=== PATIENT | female | born 1985 | race Caucasian/White ===

== ENCOUNTER 2018-07-21 20:16 | Emergency (ER) | payer BC | END 2018-07-21 21:13 | disposition home or self-care (01) | LOC: FTE 21:13 | DX: M54.2 Cervicalgia (principal) | CPT/HCPCS: 99283 ==

== ENCOUNTER 2019-01-20 21:08 | Emergency (ER) | payer BC ==
[2019-01-20 22:06] LABS: URINE BLOOD (Dip) POC Trace-intact (NEGATIVE); URINE GLUCOSE (Dip) POC Negative (NEGATIVE); URINE KETONES (Dip) POC Negative (NEGATIVE); URINE LEUKOCYTE EST (Dip) POC Negative (NEGATIVE); URINE NITRITE (Dip) POC Negative (NEGATIVE); URINE TOTAL PROTEIN POC Negative (NEGATIVE)
[2019-01-20 22:06] LABS: URINE PH (Dip) POC 5.5 (5.0-8.5)
[2019-01-20] MEDS: DEXAMETHASONE 10 MG/ML 1 ML INJ IM (22:08)
[2019-01-20] MEDS: KETOROLAC 30 MG INJ IM (22:08)
== END 2019-01-20 22:34 | disposition home or self-care (01) ==
LOC: FTE 21:08
DX: M54.42 Lumbago with sciatica, left side (principal)
CPT/HCPCS: 81003; 81025; 96372; 99284-25